=== PATIENT | female | born 1940 | race Asian ===

== ENCOUNTER 2018-01-31 05:49 | Day surgery (SDC) | payer MEDICARE, OTHER ==
[2018-01-31] MEDS ORDERED: PROPOFOL 60 ML (07:40)
[2018-01-31] MEDS ORDERED: LIDOCAINE 2% (SDV) 5 ML INJ (07:40)
== END 2018-01-31 14:10 | disposition home or self-care (01) ==
LOC: GIL 05:49
DX: R19.4 Change in bowel habit (principal); K21.9 Gastro-esophageal reflux disease without esophagitis; K29.60 Other gastritis without bleeding; K64.8 Other hemorrhoids; I10 Essential (primary) hypertension; J45.909 Unspecified asthma, uncomplicated; I25.10 Atherosclerotic heart disease of native coronary artery without angina pectoris
CPT/HCPCS: 43239; 82962; 87081

== ENCOUNTER → 2018-07-09 | Outpatient (CLI) | payer MEDICARE, OTHER ==
[2018-07-09 15:31] LABS: ADD MAN DIFF? NO
[2018-07-09 15:32] LABS: BASOPHIL # 0.1 10^3/ul (0.0-0.1); BASOPHILS % 0.5 % (0.0-2.0); EOSINOPHILS # 0.3 10^3/ul (0.0-0.5); EOSINOPHILS % 2.5 % (0.0-7.0); HEMATOCRIT 41.3 % (37.0-47.0); HEMOGLOBIN 13.5 g/dl (12.0-16.0); LYMPHOCYTES # 3.4 10^3/ul (0.8-2.9); LYMPHOCYTES % 30.5 % (15.0-51.0); MEAN CORPUSCULAR HEMOGLOBIN 29.6 pg (29.0-33.0); MEAN CORPUSCULAR HGB CONC 32.7 g/dl (32.0-37.0); MEAN CORPUSCULAR VOLUME 90.6 fl (82.0-101.0); MEAN PLATELET VOLUME 9.5 fl (7.4-10.4); MONOCYTE # 0.6 10^3/ul (0.3-0.9); MONOCYTES % 5.1 % (0.0-11.0); NEUTROPHIL # 6.8 10^3/ul (1.6-7.5); PLATELET COUNT 300 10^3/UL (140-415); RED BLOOD COUNT 4.56 10^6/ul (4.20-5.40); RED CELL DISTRIBUTION WIDTH 12.8 % (11.5-14.5)
[2018-07-09 15:32] LABS: WHITE BLOOD COUNT 11.1 10^3/ul (4.8-10.8)
[2018-07-09 15:42] LABS: ADD UMIC YES; UR ASCORBIC ACID NEGATIVE (NEGATIVE); UR BACTERIA FEW /HPF (NONE SEEN); UR BILIRUBIN (Dip) NEGATIVE (NEGATIVE); UR BLOOD (Dip) NEGATIVE (NEGATIVE); UR CLARITY SLIGHTLY CLOUDY (CLEAR); UR COLOR YELLOW (YELLOW); UR GLUCOSE (Dip) 1+ mg/dL (NEGATIVE); UR KETONES (Dip) NEGATIVE (NEGATIVE); UR LEUKOCYTE ESTERASE (Dip) 3+ Leu/ul (NEGATIVE); UR NITRITE (Dip) NEGATIVE (NEGATIVE); UR RBC 2 /HPF (0-5); UR SPECIFIC GRAVITY (Dip) 1.013 (1.003-1.030); UR SQUAMOUS EPITHELIAL CELL MODERATE /HPF (FEW); UR TOTAL PROTEIN (Dip) NEGATIVE (NEGATIVE); UR UROBILINOGEN (Dip) NEGATIVE (NEGATIVE); UR WBC 1 /HPF (0-5)
[2018-07-09 16:11] LABS: ALANINE AMINOTRANSFERASE 26 IU/L (13-69); ALBUMIN 4.4 g/dl (3.3-4.9); ALBUMIN/GLOBULIN RATIO 1.33; ALKALINE PHOSPHATASE 74 IU/L (42-121); ANION GAP 17 (8-16); ASPARTATE AMINO TRANSFERASE 21 IU/L (15-46); BILIRUBIN,INDIRECT 0.3 mg/dl (0-1.1); BILIRUBIN,TOTAL 0.3 mg/dl (0.2-1.3); BLOOD UREA NITROGEN 12 mg/dl (7-20); CALCIUM 9.7 mg/dl (8.4-10.2); CARBON DIOXIDE 31 mmol/L (21-31); CHLORIDE 101 mmol/L (97-110); CREATININE 0.62 mg/dl (0.44-1.00); GLUCOSE 90 mg/dl (70-220); POTASSIUM 4.5 mmol/L (3.5-5.1); SODIUM 144 mmol/L (135-144); TOTAL PROTEIN 7.7 g/dl (6.1-8.1)
[2018-07-12 16:17] LABS: CREATININE, RANDOM URINE 83 mg/dL (20-320); MICROALBUMIN 0.4 mg/dL; MICROALBUMIN/CREATININE RATIO 5 (<30)
== END | disposition home or self-care (01) ==
LOC: LAB 14:52
DX: N18.9 Chronic kidney disease, unspecified (principal); E11.9 Type 2 diabetes mellitus without complications
CPT/HCPCS: 80053; 81001; 82043; 85025

== ENCOUNTER → 2018-08-08 | Outpatient (CLI) | payer MEDICARE, OTHER ==
[2018-08-08 12:20] LABS: ADD UMIC YES; UR ASCORBIC ACID NEGATIVE (NEGATIVE); UR BACTERIA FEW /HPF (NONE SEEN); UR BILIRUBIN (Dip) NEGATIVE (NEGATIVE); UR BLOOD (Dip) NEGATIVE (NEGATIVE); UR CLARITY SLIGHTLY CLOUDY (CLEAR); UR COLOR YELLOW (YELLOW); UR GLUCOSE (Dip) NEGATIVE (NEGATIVE); UR KETONES (Dip) NEGATIVE (NEGATIVE); UR LEUKOCYTE ESTERASE (Dip) 3+ Leu/ul (NEGATIVE); UR NITRITE (Dip) NEGATIVE (NEGATIVE); UR RBC 7 /HPF (0-5); UR SPECIFIC GRAVITY (Dip) 1.012 (1.003-1.030); UR SQUAMOUS EPITHELIAL CELL FEW /HPF (FEW); UR TOTAL PROTEIN (Dip) NEGATIVE (NEGATIVE); UR UROBILINOGEN (Dip) NEGATIVE (NEGATIVE); UR WBC 4 /HPF (0-5)
[2018-08-08 12:26] LABS: ANION GAP 13 (8-16); BLOOD UREA NITROGEN 11 mg/dl (7-20); CALCIUM 9.2 mg/dl (8.4-10.2); CARBON DIOXIDE 29 mmol/L (21-31); CHLORIDE 101 mmol/L (97-110); CREATININE 0.63 mg/dl (0.44-1.00); GLUCOSE 177 mg/dl (70-220); POTASSIUM 4.4 mmol/L (3.5-5.1); SODIUM 139 mmol/L (135-144)
== END | disposition home or self-care (01) ==
LOC: LAB 11:32
DX: N39.0 Urinary tract infection, site not specified (principal)
CPT/HCPCS: 80048; 81001; 87086

== ENCOUNTER 2018-12-06 11:32 | Day surgery (SDC) | payer MEDICARE, OTHER ==
[2018-12-06] MEDS ORDERED: ONDANSETRON 4 MG INJ IV (13:30)
== END 2018-12-06 14:25 | disposition home or self-care (01) ==
LOC: GIL 11:32
DX: K31.9 Disease of stomach and duodenum, unspecified (principal); K44.9 Diaphragmatic hernia without obstruction or gangrene; K21.9 Gastro-esophageal reflux disease without esophagitis; E11.9 Type 2 diabetes mellitus without complications; J45.909 Unspecified asthma, uncomplicated; Z79.4 Long term (current) use of insulin; Z79.84 Long term (current) use of oral hypoglycemic drugs
CPT/HCPCS: 43239; 82962; 88305; 88312

== ENCOUNTER 2019-04-22 17:23 | Emergency (ER) | payer MEDICARE, OTHER ==
[2019-04-22] MEDS: ALBUTEROL 0.083% (NEB) 2.5 MG/3 ML AMP HHN (18:12)
[2019-04-22] MEDS: IPRATROPIUM (NEB) 0.5 MG/2.5 ML AMP HHN (18:12)
[2019-04-22] MEDS: DEXAMETHASONE 4 MG TAB PO (19:10)
== END 2019-04-22 19:16 | disposition home or self-care (01) ==
LOC: FTE 17:23
DX: J45.901 Unspecified asthma with (acute) exacerbation (principal); I10 Essential (primary) hypertension; Z79.4 Long term (current) use of insulin; Z79.82 Long term (current) use of aspirin; Z87.891 Personal history of nicotine dependence; Z98.61 Coronary angioplasty status
CPT/HCPCS: 71045; 82962; 94664; 99283-25

== ENCOUNTER 2019-04-23 17:16 | Emergency (ER) | payer MEDICARE, OTHER ==
[2019-04-23] MEDS: IPRATROPIUM (NEB) 0.5 MG/2.5 ML AMP HHN (18:56)
[2019-04-23] MEDS: ALBUTEROL 0.083% (NEB) 2.5 MG/3 ML AMP HHN (18:56)
[2019-04-23] MEDS: hydrOXYzine HCL 25 MG TAB PO (19:00)
== END 2019-04-23 19:52 | disposition home or self-care (01) ==
LOC: FTE 17:16
DX: R05 Cough (principal); L29.9 Pruritus, unspecified; I10 Essential (primary) hypertension; J45.909 Unspecified asthma, uncomplicated; E11.9 Type 2 diabetes mellitus without complications; Z79.82 Long term (current) use of aspirin; Z79.84 Long term (current) use of oral hypoglycemic drugs
CPT/HCPCS: 94664; 99283-25

== ENCOUNTER 2019-04-24 00:23 | Inpatient (IN) | payer MEDICARE, OTHER ==
[2019-04-24] MEDS: morphine 2 MG INJ IV (03:17)
[2019-04-24] MEDS: ONDANSETRON 4 MG INJ IV (03:17)
[2019-04-24] MEDS: ALBUTEROL 0.083% (NEB) 2.5 MG/3 ML AMP NEB (03:22)
[2019-04-24] MEDS: IPRATROPIUM (NEB) 0.5 MG/2.5 ML AMP NEB (03:22)
[2019-04-24 03:27] LABS: ADD MAN DIFF? NO
[2019-04-24 03:29] LABS: WHITE BLOOD COUNT 11.4 10^3/ul (4.8-10.8)
[2019-04-24 03:29] LABS: BASOPHILS % 0.1 % (0.0-2.0); EOSINOPHILS # 0.1 10^3/ul (0.0-0.5); EOSINOPHILS % 0.4 % (0.0-7.0); HEMATOCRIT 37.8 % (37.0-47.0); HEMOGLOBIN 12.2 g/dl (12.0-16.0); LYMPHOCYTES # 1.9 10^3/ul (0.8-2.9); LYMPHOCYTES % 16.4 % (15.0-51.0); MEAN CORPUSCULAR HEMOGLOBIN 29.5 pg (29.0-33.0); MEAN CORPUSCULAR HGB CONC 32.3 g/dl (32.0-37.0); MEAN CORPUSCULAR VOLUME 91.5 fl (82.0-101.0); MONOCYTE # 0.2 10^3/ul (0.3-0.9); MONOCYTES % 1.6 % (0.0-11.0); NEUTROPHIL # 9.2 10^3/ul (1.6-7.5); NEUTROPHILS % 81.2 % (39.0-77.0); PLATELET COUNT 248 10^3/UL (140-415); RED BLOOD COUNT 4.13 10^6/ul (4.20-5.40); RED CELL DISTRIBUTION WIDTH 13.2 % (11.5-14.5)
[2019-04-24 03:50] LABS: ALANINE AMINOTRANSFERASE 38 IU/L (13-69); ALBUMIN 4.1 g/dl (3.3-4.9); ALBUMIN/GLOBULIN RATIO 1.24; ALKALINE PHOSPHATASE 75 IU/L (42-121); ANION GAP 9 (5-13); ASPARTATE AMINO TRANSFERASE 30 IU/L (15-46); BILIRUBIN,INDIRECT 0.5 mg/dl (0-1.1); BILIRUBIN,TOTAL 0.5 mg/dl (0.2-1.3); BLOOD UREA NITROGEN 13 mg/dl (7-20); CALCIUM 8.8 mg/dl (8.4-10.2); CARBON DIOXIDE 30 mmol/L (21-31); CHLORIDE 104 mmol/L (97-110); CREATININE 0.64 mg/dl (0.44-1.00); GLUCOSE 82 mg/dl (70-220); POTASSIUM 3.9 mmol/L (3.5-5.1); SODIUM 143 mmol/L (135-144); TOTAL PROTEIN 7.4 g/dl (6.1-8.1)
[2019-04-24 04:02] LABS: B-TYPE NATRIURETIC PEPTIDE 238 PG/ML (0-450); TROPONIN-I < 0.012 ng/ml (0.000-0.120)
[2019-04-24] MEDS ORDERED: ONDANSETRON 4 MG INJ IV ×2 (05:30→10:00)
[2019-04-24] MEDS: ACETAMINOPHEN 325 MG TAB PO ×2 (06:20→20:49)
[2019-04-24] MEDS: METHYLPREDNISOLONE 125 MG INJ IV (06:20)
[2019-04-24] MEDS ORDERED: ALBUTEROL/IPRATROPIUM (NEB) 3 ML AMP HHN (09:30)
[2019-04-24] MEDS ORDERED: DEXTROSE 50% 50 ML SYRINGE IV ×2 (10:00)
[2019-04-24] MEDS ORDERED: GLUCAGON 1 MG INJ IM (10:00)
[2019-04-24] MEDS ORDERED: GLUCOSE GEL 15 GRAM TUBE PO ×2 (10:00)
[2019-04-24] MEDS ORDERED: GLUCOSE GEL 15 GRAM TUBE BUCCAL (10:00)
[2019-04-24] MEDS: CEFTRIAXONE 1 GM/50 ML (PMX) 50 ML IVPB (11:48)
[2019-04-24] MEDS: ALBUTEROL/IPRATROPIUM (NEB) 3 ML AMP HHN ×3 (11:49→21:10)
[2019-04-24] MEDS: ENOXAPARIN 30 MG/0.3 ML SYG SC (11:51)
[2019-04-24] MEDS: METHYLPREDNISOLONE 40 MG INJ IV ×2 (11:52→20:46)
[2019-04-24] MEDS: metFORMIN 500 MG TAB PO ×2 (11:53→17:22)
[2019-04-24] MEDS: INSULIN ASPART [NOVOLOG] 3 ML PEN SC ×3 (13:21→21:02)
[2019-04-24] MEDS: NPH, HUMAN INSULIN ISOPHANE 3ML VIAL SC ×2 (13:22→21:00)
[2019-04-24] MEDS: SENNA TAB PO (22:38)
[2019-04-24] MEDS: ZOLPIDEM 5 MG TAB PO (22:39)
[2019-04-25] MEDS: ALBUTEROL/IPRATROPIUM (NEB) 3 ML AMP HHN ×4 (01:59→20:13)
[2019-04-25 05:32] LABS: ADD MAN DIFF? NO
[2019-04-25 05:47] LABS: WHITE BLOOD COUNT 10.9 10^3/ul (4.8-10.8)
[2019-04-25 05:47] LABS: BASOPHILS % 0.1 % (0.0-2.0); HEMATOCRIT 37.5 % (37.0-47.0); HEMOGLOBIN 11.8 g/dl (12.0-16.0); LYMPHOCYTES # 0.9 10^3/ul (0.8-2.9); LYMPHOCYTES % 8.5 % (15.0-51.0); MEAN CORPUSCULAR HEMOGLOBIN 28.6 pg (29.0-33.0); MEAN CORPUSCULAR HGB CONC 31.5 g/dl (32.0-37.0); MEAN PLATELET VOLUME 9.7 fl (7.4-10.4); MONOCYTE # 0.2 10^3/ul (0.3-0.9); MONOCYTES % 2.2 % (0.0-11.0); NEUTROPHIL # 9.7 10^3/ul (1.6-7.5); NEUTROPHILS % 88.9 % (39.0-77.0); PLATELET COUNT 256 10^3/UL (140-415); RED BLOOD COUNT 4.12 10^6/ul (4.20-5.40); RED CELL DISTRIBUTION WIDTH 13.3 % (11.5-14.5)
[2019-04-25 06:06] LABS: ANION GAP 9 (5-13); BLOOD UREA NITROGEN 15 mg/dl (7-20); CALCIUM 9.1 mg/dl (8.4-10.2); CARBON DIOXIDE 29 mmol/L (21-31); CHLORIDE 103 mmol/L (97-110); CREATININE 0.56 mg/dl (0.44-1.00); GLUCOSE 154 mg/dl (70-220); POTASSIUM 4.3 mmol/L (3.5-5.1); SODIUM 141 mmol/L (135-144)
[2019-04-25] MEDS: INSULIN ASPART [NOVOLOG] 3 ML PEN SC ×4 (08:00→20:43)
[2019-04-25] MEDS: metFORMIN 500 MG TAB PO ×3 (08:26→17:34)
[2019-04-25] MEDS: NPH, HUMAN INSULIN ISOPHANE 3ML VIAL SC ×2 (08:42→20:42)
[2019-04-25] MEDS: METHYLPREDNISOLONE 40 MG INJ IV ×2 (08:49→20:40)
[2019-04-25] MEDS: SENNA TAB PO ×2 (08:49→20:40)
[2019-04-25] MEDS: ENOXAPARIN 30 MG/0.3 ML SYG SC (08:53)
[2019-04-25] MEDS: CEFTRIAXONE 1 GM/50 ML (PMX) 50 ML IVPB (08:53)
[2019-04-25] MEDS: ACETAMINOPHEN 325 MG TAB PO ×2 (08:53→20:40)
[2019-04-25] MEDS: CLOPIDOGREL 75 MG TAB PO (17:34)
[2019-04-25] MEDS: HYDROCODONE/HOMATROPINE 5ML CUP PO (22:39)
[2019-04-25] MEDS: ZOLPIDEM 5 MG TAB PO (23:39)
[2019-04-26] MEDS: ALBUTEROL/IPRATROPIUM (NEB) 3 ML AMP HHN ×4 (02:26→20:15)
[2019-04-26] MEDS: HYDROCODONE/HOMATROPINE 5ML CUP PO (04:25)
[2019-04-26 06:22] LABS: ADD MAN DIFF? NO
[2019-04-26 06:26] LABS: BASOPHILS % 0.1 % (0.0-2.0); HEMATOCRIT 41.8 % (37.0-47.0); HEMOGLOBIN 13.5 g/dl (12.0-16.0); LYMPHOCYTES # 1.6 10^3/ul (0.8-2.9); LYMPHOCYTES % 12.1 % (15.0-51.0); MEAN CORPUSCULAR HEMOGLOBIN 28.8 pg (29.0-33.0); MEAN CORPUSCULAR HGB CONC 32.3 g/dl (32.0-37.0); MEAN CORPUSCULAR VOLUME 89.1 fl (82.0-101.0); MEAN PLATELET VOLUME 9.3 fl (7.4-10.4); MONOCYTE # 0.4 10^3/ul (0.3-0.9); MONOCYTES % 2.9 % (0.0-11.0); NEUTROPHIL # 11.2 10^3/ul (1.6-7.5); NEUTROPHILS % 84.1 % (39.0-77.0); PLATELET COUNT 314 10^3/UL (140-415); RED BLOOD COUNT 4.69 10^6/ul (4.20-5.40); RED CELL DISTRIBUTION WIDTH 13.2 % (11.5-14.5)
[2019-04-26 06:26] LABS: WHITE BLOOD COUNT 13.3 10^3/ul (4.8-10.8)
[2019-04-26 06:50] LABS: ANION GAP 16 (5-13); BLOOD UREA NITROGEN 15 mg/dl (7-20); CALCIUM 9.7 mg/dl (8.4-10.2); CARBON DIOXIDE 27 mmol/L (21-31); CHLORIDE 99 mmol/L (97-110); CREATININE 0.59 mg/dl (0.44-1.00); GLUCOSE 234 mg/dl (70-220); POTASSIUM 4.1 mmol/L (3.5-5.1); SODIUM 142 mmol/L (135-144)
[2019-04-26] MEDS: SENNA TAB PO ×2 (09:01→20:45)
[2019-04-26] MEDS: CLOPIDOGREL 75 MG TAB PO (09:01)
[2019-04-26] MEDS: metFORMIN 500 MG TAB PO ×3 (09:02→17:23)
[2019-04-26] MEDS: METHYLPREDNISOLONE 40 MG INJ IV ×2 (09:02→20:45)
[2019-04-26] MEDS: ENOXAPARIN 30 MG/0.3 ML SYG SC (09:05)
[2019-04-26] MEDS: INSULIN ASPART [NOVOLOG] 3 ML PEN SC ×4 (09:05→20:50)
[2019-04-26] MEDS: NPH, HUMAN INSULIN ISOPHANE 3ML VIAL SC ×2 (09:05→20:50)
[2019-04-26] MEDS: CEFTRIAXONE 1 GM/50 ML (PMX) 50 ML IVPB (09:06)
[2019-04-26 19:23] LABS: TROPONIN-I < 0.012 ng/ml (0.000-0.120)
[2019-04-26] MEDS: GABAPENTIN 300 MG CAP PO (23:00)
[2019-04-27] MEDS: ALBUTEROL/IPRATROPIUM (NEB) 3 ML AMP HHN ×5 (02:01→20:00)
[2019-04-27] MEDS: HYDROCODONE/HOMATROPINE 5ML CUP PO (04:32)
[2019-04-27] MEDS: CLOPIDOGREL 75 MG TAB PO (08:12)
[2019-04-27] MEDS: SENNA TAB PO ×2 (08:12→20:45)
[2019-04-27] MEDS: ISOSORBIDE MONONITRATE(SR)30 MG TAB PO (08:12)
[2019-04-27] MEDS: GABAPENTIN 300 MG CAP PO ×2 (08:12→20:45)
[2019-04-27] MEDS: metFORMIN 500 MG TAB PO ×3 (08:12→17:25)
[2019-04-27] MEDS: METHYLPREDNISOLONE 40 MG INJ IV (08:13)
[2019-04-27] MEDS: NPH, HUMAN INSULIN ISOPHANE 3ML VIAL SC ×2 (08:15→20:47)
[2019-04-27] MEDS: ENOXAPARIN 30 MG/0.3 ML SYG SC (08:16)
[2019-04-27] MEDS: INSULIN ASPART [NOVOLOG] 3 ML PEN SC ×4 (08:16→20:47)
[2019-04-27] MEDS: CEFTRIAXONE 1 GM/50 ML (PMX) 50 ML IVPB (09:13)
[2019-04-27] MEDS: LEVOFLOXACIN 500 MG TAB PO (17:24)
[2019-04-27] MEDS: ATORVASTATIN 20 MG TAB PO (20:45)
[2019-04-28] MEDS: ALBUTEROL/IPRATROPIUM (NEB) 3 ML AMP HHN ×4 (03:00→20:04)
[2019-04-28] MEDS: LEVOFLOXACIN 250 MG TAB PO (06:02)
[2019-04-28] MEDS: INSULIN ASPART [NOVOLOG] 3 ML PEN SC ×4 (08:00→21:08)
[2019-04-28] MEDS: metFORMIN 500 MG TAB PO ×3 (08:03→17:08)
[2019-04-28] MEDS: GABAPENTIN 300 MG CAP PO ×2 (08:08→20:59)
[2019-04-28] MEDS: CLOPIDOGREL 75 MG TAB PO (08:09)
[2019-04-28] MEDS: ISOSORBIDE MONONITRATE(SR)30 MG TAB PO (08:09)
[2019-04-28] MEDS: SENNA TAB PO ×2 (08:09→20:59)
[2019-04-28] MEDS: METHYLPREDNISOLONE 40 MG INJ IV (08:10)
[2019-04-28] MEDS: ENOXAPARIN 30 MG/0.3 ML SYG SC (08:12)
[2019-04-28] MEDS: NPH, HUMAN INSULIN ISOPHANE 3ML VIAL SC ×2 (08:12→21:06)
[2019-04-28] MEDS: ATORVASTATIN 20 MG TAB PO (20:59)
[2019-04-28] MEDS: ZOLPIDEM 5 MG TAB PO (21:13)
[2019-04-29] MEDS: ALBUTEROL/IPRATROPIUM (NEB) 3 ML AMP HHN ×3 (01:16→13:25)
[2019-04-29] MEDS: LEVOFLOXACIN 250 MG TAB PO (06:12)
[2019-04-29] MEDS: INSULIN ASPART [NOVOLOG] 3 ML PEN SC ×2 (08:00→11:51)
[2019-04-29] MEDS: SENNA TAB PO (08:23)
[2019-04-29] MEDS: metFORMIN 500 MG TAB PO ×2 (08:23→11:54)
[2019-04-29] MEDS: GABAPENTIN 300 MG CAP PO (08:23)
[2019-04-29] MEDS: CLOPIDOGREL 75 MG TAB PO (08:23)
[2019-04-29] MEDS: ISOSORBIDE MONONITRATE(SR)30 MG TAB PO (08:24)
[2019-04-29] MEDS: METHYLPREDNISOLONE 40 MG INJ IV (08:24)
[2019-04-29] MEDS: ENOXAPARIN 30 MG/0.3 ML SYG SC (08:27)
[2019-04-29] MEDS: NPH, HUMAN INSULIN ISOPHANE 3ML VIAL SC (08:28)
== END 2019-04-29 14:10 | disposition home or self-care (01) | DRG 202 ==
LOC: FTE 00:23 → PP2 05:30
DX: J45.901 Unspecified asthma with (acute) exacerbation (principal); I50.30 Unspecified diastolic (congestive) heart failure; J44.0 Chronic obstructive pulmonary disease with (acute) lower respiratory infection; J20.9 Acute bronchitis, unspecified; I25.10 Atherosclerotic heart disease of native coronary artery without angina pectoris; E11.9 Type 2 diabetes mellitus without complications; K21.9 Gastro-esophageal reflux disease without esophagitis; E78.00 Pure hypercholesterolemia, unspecified; I11.0 Hypertensive heart disease with heart failure; Z95.5 Presence of coronary angioplasty implant and graft; Z87.891 Personal history of nicotine dependence; Z79.4 Long term (current) use of insulin
CPT/HCPCS: 36415; 71045; 80048; 80053; 82962; 83880; 84484; 85025; 87400; 93005; 93306; 94640; 94664; 94667; 96374; 96375; 99285-25; G0378

== ENCOUNTER 2019-08-01 09:11 | Emergency (ER) | payer MEDICARE, OTHER ==
[2019-08-01] MEDS: SOD CHLORIDE 0.9% 1,000 ML IV (10:36)
[2019-08-01] MEDS: KETOROLAC 15 MG INJ IV (11:08)
[2019-08-01] MEDS: morphine 2 MG INJ IV (13:02)
== END 2019-08-01 13:25 | disposition home or self-care (01) ==
LOC: FTE 09:11
DX: R10.2 Pelvic and perineal pain (principal); I10 Essential (primary) hypertension; J45.909 Unspecified asthma, uncomplicated; R30.0 Dysuria; E11.9 Type 2 diabetes mellitus without complications; Z79.82 Long term (current) use of aspirin; Z79.84 Long term (current) use of oral hypoglycemic drugs; Z98.61 Coronary angioplasty status
CPT/HCPCS: 36415; 74176; 80053; 81003; 83690; 85025; 87086; 96361; 96374; 96375; 99285-25